=== PATIENT | female | born 1975 | race Caucasian/White ===

== ENCOUNTER 2024-04-19 17:33 | Emergency (ER) | payer OTHER, SELFPAY ==
[2024-04-19 17:49] VITALS: BP 167/87; PULSE 95; RESP 16; TEMP 36.7; O2SAT 99
--- NOTE | 2024-04-19 17:57 | ED.GENADULT ---
HPI - General Adult General Chief complaint: Urogenital-Female Stated complaint: achy,eyes burning, hemorrhoid Time Seen by Provider: 04/19/24 18:00 Source: patient Mode of arrival: ambulatory Limitations: no limitations History of Present Illness HPI narrative: 49-year-old female presents with concern for possible hemorrhoid, anal discomfort, vaginal discomfort and swelling. She reports she had diarrhea for a week, over the last couple days she started having burning and pain in her perianal area. Reports the anus and vagina have become swollen and very tender. She reports she started feeling generally ill today with chills and sweats. complaint: Perianal pain Related Data Home Medications Medication Instructions Recorded Confirmed No Home Medications 04/19/24 04/19/24 Allergies Allergy/AdvReac Type Severity Reaction Status Date / Time No Known Allergies Allergy Verified 04/19/24 17:34 Review of Systems Review of Systems: CONSTITUTIONAL: Reports malaise, chills, sweats CARDIOVASCULAR: Denies chest pain, palpitations, or edema. RESPIRATORY: Denies dyspnea. GASTROINTESTINAL: Denies abdominal pain, nausea, vomiting. Reports diarrhea, anal swelling and discomfort GENITOURINARY: Reports vaginal swelling and discomfort SKIN: Denies rash or itching. MUSCULOSKELETAL: Reports myalgia. NEUROLOGIC: Denies numbness, weakness, or headache. All systems reviewed & are unremarkable except as noted in HPI and below PMFSH Comments At time of signature, agree with nursing past medical, surgical, social and family history. There is no relevant family history pertinent to the presenting complaint Exam Narrative: GENERAL: Well-appearing, well-nourished, and in no acute distress. HEAD: Normocephalic, atraumatic. EYES: PERRLA, sclera clear, and EOMI ENT: Nares clear. Mucous membranes moist. NECK: Supple. CHEST: No respiratory distress. Speaks in full sentences. HEART: Regular rate and rhythm. /GI: Anal tenderness and swelling noted with no palpable or visible hemorrhoid. No other area of erythema, edema, fluctuation in the perianal area noted SKIN: Warm, dry, no visible rash. NEURO: Alert and oriented x3. PSYCH: Normal mood and affect Course Course Emergency Course: Patient is aware of, understands and agrees to be transferred to the emergency room. Patient agrees to proceed directly to the emergency department. Portions of this record may have been created with voice recognition software Level of Care: Express Care Visit Vital Signs Vital signs: Vital Signs Temperature 98.1 F 04/19/24 17:49 Pulse Rate 95 04/19/24 17:49 Respiratory Rate 16 04/19/24 17:49 Blood Pressure 167/87 H 04/19/24 17:49 Pulse Oximetry 99 04/19/24 17:49 Oxygen Delivery Room Air 04/19/24 17:49 Temperature 98.1 F 04/19/24 17:49 Pulse Rate 95 04/19/24 17:49 Respiratory Rate 16 04/19/24 17:49 Blood Pressure 167/87 H 04/19/24 17:49 Pulse Oximetry 99 04/19/24 17:49 Oxygen Delivery Room Air 04/19/24 17:49 Reviewed. Transfer Transfered to: [facility] Transportation: Other (Private vehicle) Transfer rationale: Concern for perianal infection Accepting physician: Mert Medical Decision Making MDM Narrative Medical decision making narrative: Patient's history and exam or further evaluation emergency department. Patient is nontoxic appearing and in no acute distress Vital Signs Vital Signs: Vital Signs Temperature 98.1 F 04/19/24 17:49 Pulse Rate 95 04/19/24 17:49 Respiratory Rate 16 04/19/24 17:49 Blood Pressure 167/87 H 04/19/24 17:49 Pulse Oximetry 99 04/19/24 17:49 Oxygen Delivery Room Air 04/19/24 17:49 Temperature 98.1 F 04/19/24 17:49 Pulse Rate 95 04/19/24 17:49 Respiratory Rate 16 04/19/24 17:49 Blood Pressure 167/87 H 04/19/24 17:49 Pulse Oximetry 99 04/19/24 17:49 Oxygen Delivery Room Air 04/19/24 17:49 Crit
== END 2024-04-19 18:11 | disposition short-term general hospital (02) ==
PROVIDERS: Emergency Provider Nurse Practitioner
DX: R10.2 Pelvic and perineal pain (principal); I10 Essential (primary) hypertension; K21.9 Gastro-esophageal reflux disease without esophagitis
CPT/HCPCS: 99212; G0463

== ENCOUNTER 2024-04-19 18:29 | Emergency (ER) | payer OTHER, SELFPAY ==
[2024-04-19 19:19] VITALS: BP 190/86; PULSE 102; RESP 16; TEMP 37.9; O2SAT 98
--- NOTE | 2024-04-19 20:38 | PC.NURSE ---
Pt approached triage desk and stated she was leaving and going to another hospital due to wait times.
== END 2024-04-19 20:38 | disposition left against medical advice (07) ==
LOC: ANHED 20:43
DX: R10.2 Pelvic and perineal pain (principal)
CPT/HCPCS: 99199